=== PATIENT | male | born 1965 | race Caucasian/White ===

== ENCOUNTER 2016-08-08 09:22 | Inpatient (IN) | payer OTHER ==
[~2016-08-08] VITALS: Ht 180.3 cm; Wt 95.0 kg
[2016-08-08 09:59] LABS: BASOPHIL COUNT 0.1 K/uL (0-0.1); EOSINOPHIL (%) 2.2 % (0-5); EOSINOPHIL COUNT 0.2 K/uL (0-0.3); IMMATURE GRANULOCYTE (%) 0.4 % (0.0-0.7); INSTRUMENT ABS NEUTROPHIL CT 6.5 K/uL; LYMPHOCYTE COUNT 1.9 K/uL (1.0-2.8); MCH 29.6 PG (29.0-34.0); MCHC 32.7 G/DL (30.0-36.0); MCV 90.4 FL (86-99); MEAN PLAT.VOLUME 11.5 uM^3 (9.0-12.4); MONOCYTE (%) 5.4 % (3-12); MONOCYTE COUNT 0.5 K/uL (0-0.8); NEUTROPHIL (%) 70.5 % (45-76); NEUTROPHIL COUNT 6.5 K/uL (1.8-6.4); PLATELET COUNT 217 K/uL (156-360); RBC DIS.WIDTH-CV 13.4 % (11.8-14.6); RBC DIS.WIDTH-SD 45.1 % (39-53); RED BLOOD COUNT 5.64 M/uL (4.00-5.50); WHITE BLOOD COUNT 9.2 K/uL (4.1-10.2)
[2016-08-08 11:46] LABS: CHLORIDE 111 mEq/L (99-109); SODIUM 143 mEq/L (136-147)
[2016-08-08 11:48] LABS: GLUCOSE 120 mg/dL (70-99)
[2016-08-08 11:49] LABS: ANION GAP 14 MEQ/L (2-14)
[2016-08-08 11:52] LABS: GFR ESTIMATE (CALCULATED) > 59 mL/min/
[2016-08-08 11:53] LABS: UREA NITROGEN (BUN) 15 mg/dL (9-23)
[2016-08-08 11:54] LABS: ADD MIUA? YES; BILIRUBIN NEGATIVE; BLOOD LARGE; COLOR YELLOW ((YELLOW)); GLUCOSE (STRIP) NEGATIVE; KETONES 20; LEUKOCYTES NEGATIVE; NITRITE NEGATIVE; PROTEIN (STRIP) 30; SPECIFIC GRAVITY 1.019 (1.000-1.030); UROBILINOGEN 0.2 MG/DL (0.2-1.0)
[2016-08-08 12:00] LABS: BACTERIA NONE SEEN /HPF; EPITHELIAL CELLS NONE SEEN /HPF; MUCUS 1+ /LPF; RED BLOOD CELLS TNTC /HPF (0-5); UCUL ADDED? NO
[2016-08-08] MEDS ORDERED: TORADOL10 MG PO (14:33)
[2016-08-08] MEDS ORDERED: FLOMAX0.4 MG PO (14:33)
[2016-08-08] MEDS ORDERED: ZOFRAN4 MG PO (14:33)
[2016-08-08] MEDS ORDERED: PERCOCET 5/31 TABLET PO (14:33)
[2016-08-08] MEDS ORDERED: FLONASE16 G1 BOTH NARES (16:11)
[2016-08-08] MEDS ORDERED: LISINOPRIL20 MG PO (16:12)
[2016-08-08 17:36] VITALS: BP 149/76
[2016-08-08 18:55] VITALS: BP 142/82
[2016-08-08 22:41] VITALS: BP 132/70
[2016-08-09 03:47] VITALS: BP 141/71
[2016-08-09 07:10] VITALS: BP 120/67
[2016-08-09 07:32] LABS: HEMATOCRIT 43.7 % (38.0-50.0); MCH 30.6 PG (29.0-34.0); MEAN PLAT.VOLUME 11.2 uM^3 (9.0-12.4); PLATELET COUNT 180 K/uL (156-360); RBC DIS.WIDTH-CV 13.6 % (11.8-14.6); RBC DIS.WIDTH-SD 46.6 % (39-53)
[2016-08-09 07:34] LABS: WHITE BLOOD COUNT 13.2 K/uL (4.1-10.2)
[2016-08-09 08:01] LABS: ANION GAP 10 MEQ/L (2-14); CHLORIDE 106 MEQ/L (99-109); GFR ESTIMATE (CALCULATED) > 59 mL/min/; GLUCOSE 99 mg/dL (70-99); POTASSIUM 3.9 MEQ/L (3.7-5.4); SAMPLE HEMOLYSIS CHECK 0; SAMPLE ICTERIC CHECK 0; SAMPLE LIPEMIA CHECK 0; SODIUM 139 MEQ/L (136-147); UREA NITROGEN (BUN) 14 mg/dL (9-23)
[2016-08-09 13:28] VITALS: BP 135/71
[2016-08-09 15:15] VITALS: BP 116/62
[2016-08-09 20:14] VITALS: BP 173/84
[2016-08-09 23:40] VITALS: BP 139/75
[2016-08-10 04:52] VITALS: BP 131/82
[2016-08-10 06:53] VITALS: BP 151/76
[2016-08-10 07:06] LABS: ANION GAP 10 MEQ/L (2-14); CHLORIDE 107 MEQ/L (99-109); MCH 30.3 PG (29.0-34.0); MCHC 33.3 G/DL (30.0-36.0); MCV 90.9 FL (86-99); MEAN PLAT.VOLUME 11.6 uM^3 (9.0-12.4); PLATELET COUNT 140 K/uL (156-360); POTASSIUM 3.9 MEQ/L (3.7-5.4); RBC DIS.WIDTH-CV 13.5 % (11.8-14.6); RBC DIS.WIDTH-SD 45.4 % (39-53); RED BLOOD COUNT 4.62 M/uL (4.00-5.50); SAMPLE HEMOLYSIS CHECK 0; SAMPLE ICTERIC CHECK 0; SAMPLE LIPEMIA CHECK 0; SODIUM 140 MEQ/L (136-147)
[2016-08-10 07:11] LABS: GFR ESTIMATE (CALCULATED) > 59 mL/min/; GLUCOSE 96 mg/dL (70-99); UREA NITROGEN (BUN) 16 mg/dL (9-23)
[2016-08-10] MEDS ORDERED: TORADOL10 MG PO (09:20)
[2016-08-10] MEDS ORDERED: DOCUSATE SODIU100 MG PO (09:20)
[2016-08-10] MEDS ORDERED: PERCOCET 5/31 TABLET PO (09:20)
[2016-08-10] MEDS ORDERED: TAMSULOSIN HCL0.4 MG PO (09:20)
[2016-08-10] MEDS ORDERED: CIPRO500 MG PO (09:21)
== END 2016-08-10 12:07 | disposition home or self-care (01) | DRG 694 ==
LOC: EME 09:22 → EDOF 15:32 → 5EAST 15:59
PROVIDERS: Emergency Medicine; Hospitalist; Internal Medicine
PROC: BT1D1ZZ Fluoroscopy of Right Kidney, Ureter and Bladder using Low Osmolar Contrast (ICD-10-PCS; principal; 2016-08-09)
PROC: 0T768DZ Dilation of Right Ureter with Intraluminal Device, Via Natural or Artificial Opening Endoscopic (ICD-10-PCS; 2016-08-09)
DX: N13.1 Hydronephrosis with ureteral stricture, not elsewhere classified (principal); K40.90 Unilateral inguinal hernia, without obstruction or gangrene, not specified as recurrent; E87.2 Acidosis; N20.0 Calculus of kidney; N39.0 Urinary tract infection, site not specified; R10.9 Unspecified abdominal pain; K57.90 Diverticulosis of intestine, part unspecified, without perforation or abscess without bleeding; I10 Essential (primary) hypertension; K21.9 Gastro-esophageal reflux disease without esophagitis
CPT/HCPCS: 74000; 74176; 80048; 81003; 85025; 85027; 87086; 99281; 99285; C1758; C1876; G0103; J0330; J0696; J1100; J1170; J1644; J1885; J2250; J2405; J3010; J7030; J7050; J7120; S0028